=== PATIENT | female | born 1975 | race Hispanic/Latino ===

== ENCOUNTER 2025-05-02 18:07 | Emergency (ER) | payer SELFPAY ==
[~2025-05-02] VITALS: Ht 157.5 cm; Wt 127.0 kg
--- NOTE | 2025-05-02 18:14 | ERN ---
ED Note History of Present Illness Stated Complaint: FEVER, COUGH, BODY ACHES Chief Complaint: Fever Time Seen by MD: 18:09 Dictation: PATIENT IS A 49-YEAR-OLD FEMALE HERE WITH FLU-LIKE SYMPTOMS TO INCLUDE FEVER WITH CHILLS, DRY COUGH, MILD SORE THROAT WITH MALAISE FOR THE LAST TWO DAYS. SHE DENIES NAUSEA VOMITING OR DIARRHEA. NO LOSS OF TASTE OR SMELL IS TAKING CHILDREN'S TYLENOL OR MOTRIN FOR FEVER. NO PRIMARY CARE DOCTOR Allergies: Coded Allergies: No Known Allergies (Unverified Allergy, Unknown, 05/02/25) Past Medical History History: Not Applicable RN Note Reviewed/Agreed w/PFSH: Yes Review of System Dictation CONSTITUTIONAL: NEGATIVE EXCEPT FOR HPI FEVER CHILLS HEAD/FACE: NEGATIVE EXCEPT FOR HPI EENT: NEGATIVE EXCEPT FOR HPI SORE THROAT RESPIRATORY: NEGATIVE EXCEPT FOR HPI DRY COUGH GASTROINTESTINAL/ABDOMINAL: NEGATIVE EXCEPT FOR HPI GENITOURINARY: NEGATIVE EXCEPT FOR HPI MUSCULOSKELETAL: NEGATIVE EXCEPT FOR HPI INTEGUMENTARY: NEGATIVE EXCEPT FOR HPI NEUROLOGICAL/PSYCH: NEGATIVE EXCEPT FOR HPI HEMATOLOGIC/LYMPHATIC: NEGATIVE EXCEPT FOR HPI ALL SYSTEMS NEGATIVE, EXCEPT NOTED ABOVE. 13 POINT REVIEW OF SYSTEMS ASSESSED AND ALL NEGATIVE EXCEPT FOR ABOVE. Initial Vital Sign VS Vital Signs Date Time Temp Pulse Resp B/P (MAP) Pulse Ox O2 Delivery O2 Flow Rate FiO2 05/02/25 18:08 99.7 102 18 133/65 99 Room Air 0 05/02/25 18:20 21 Physical Exam Dictation VITAL SIGNS REVIEWED GENERAL APPEARANCE: ALERT, ORIENTED X 3, MILD ACUTE DISTRESS, WELL DEVELOPED, NOURISHED. OBESE HEAD AND FACE: NON-TRAUMATIC. EYES: PERRL, PINK CONJUNCTIVAS, EYELID NO TRAUMA, ANTERIOR CHAMBER WITH ARCUS SENILIS. EARS: PINNAS INTACT AND NO SIGNS OF TRAUMA OR ERYTHEMA EAR CANALS CLEAR AND NO DISCHARGE TM NO ERYTHEMA NOSE: NO DISCHARGE, NO BLEEDING. OROPHARYNX: MOUTH NORMAL, TONGUE PINK, PHARYNX CLEAR, MILD PHARYNGEAL ERYTHEMA, TONSILS NO EXUDATES, NO ABSCESSES NOTED, MUCOUS MEMBRANE MOIST UVULA MIDLINE, VOICE IS CLEAR NECK: SUPPLE, NON-TENDER, NO THYROMEGALY, NO MASSES, NO JVD, NO BRUITS BREAST:DEFERRED CHEST:NO TENDERNESS, NO CREPITUS, NO PARADOXICAL MOVEMENT, NO RETRACTIONS LUNGS:CLEAR, WELL-VENTILATED, SYMMETRIC, NO RALES, NO WHEEZING, NO RHONCHI, NO STRIDOR, GOOD BREATH SOUNDS BILATERALLY HEART: REGULAR RATE, REGULAR RHYTHM, NO MURMUR, NO GALLOPS VASCULAR: NO PERIPHERAL EDEMA, ABDOMEN: SOFT, POSITIVE BOWEL SOUNDS, NONDISTENDED, NO GUARDING, NONTENDER, NO REBOUND, NO MASSES NO HEPATOMEGALY, NO SPLENOMEGALY, NO VALDEZ'S SIGN, NO HERNIAS. RECTAL: DEFERRED GENITAL: DEFERRED NEUROLOGICAL: NORMAL SPEECH, MOTOR FUNCTION INTACT, SENSORY FUNCTION INTACT MUSCULOSKELETAL: NECK NONTENDER, FULL RANGE OF MOTION, BACK NONTENDER, FULL RANGE OF MOTION, EXTREMITIES: NONTENDER, FULL RANGE OF MOTION SKIN: COLOR PINK, DRY, NO TURGOR, NO RASH, NO LACERATIONS, NO ABRASIONS, NO CONTUSIONS. LYMPHATIC: DEFERRED Results (Laboratory/Radiology) Laboratory/Radiology Laboratory Tests Test 05/02/25 18:11 Influenza Type A Antigen Negative For Type A Influenza Type B Antigen Negative For Type B SARS-CoV-2 Antigen (Rapid) PRESUMPTIVE NEGATIVE Group A Streptococcus Rapid negative (NEGATIVE) Labs Reviewed?: Yes ED Course ED Course Orders Procedure Category Date Status Time Rapid (Group A Strep) LAB 05/02/25 Complete 18:11 Covid19 (Sars Antigen LAB 05/02/25 Complete Rapid) 18:11 Influenza Type A & B, LAB 05/02/25 Complete Rapid 18:11 Acetaminophen 500mg PHA 05/02/25 Complete Tab (Tylenol 500mg T 18:30 Current Medications Medications (Trade) Dose Ordered Sig/Beatrice Route PRN Reason Start Time Stop Time Status Last Admin Dose Admin Acetaminophen (TYLenol 500MG TAB) 1,000 mg ONCE ONCE PO 05/02/25 18:30 05/02/25 18:31 DC 05/02/25 18:45 Vital Signs Date Time Temp Pulse Resp B/P (MAP) Pulse Ox O2 Delivery O2 Flow Rate FiO2 05/02/25 18:20 98.8 93 18 128/62 99 Room Air* 0 21 05/02/25 18:08 99.7 102 18 133/65 99 Room Air 0 Medical Decision Making [facility] 1900/MEDICAL DECISION-MAKING BASED ON SWABS FOR FLU COVID AND STREP. ALL SWABS NEGATIVE PATIENT WILL BE TREATED EMPIRICALLY FOR ACUTE PHARYNGITIS UNSPECIFIED GIVEN AUGMENTIN 875 B.I.D. 10 DAYS TOLD TO SEE HER PRIMARY CARE DOCTOR DX & DISP Disposition: Discharge Departure Impression: Primary Impression: Acute pharyngitis, unspecified Additional Impression: Fever Condition: Stable Scripts Ibuprofen (Ibuprofen 800 mg Tab) 800 Mg Tab 800 MG PO Q8H PRN for fever or pain, #30 TAB 0 Refills Prov: VITOCATRACHITASIDRA 05/02/25 Amoxicillin/Potassium Clav (Amox Tr-K Clv 875-125 mg Tab) 875 Mg-125 Mg Tablet 1 EACH PO BID for 10 Days, #20 TAB 0 Refills Prov: SIDRA GONZALEZ 05/02/25 Additional Instructions: FOLLOW-UP WITH PRIMARY CARE PROVIDER IN 1 TO 2 DAYS. TAKE MEDICATIONS DIRECTED HERE IN THE EMERGENCY ROOM. OKAY TO CONTINUE HOME MEDICATIONS UNLESS OTHERWISE DISCUSSED DURING YOUR VISIT IN THE EMERGENCY ROOM TODAY. RETURN TO YOUR NEAREST EMERGENCY ROOM IF SYMPTOMS WORSEN OR IF THERE IS NO IMPROVEMENT. CALL 911 IF YOU NEED IMMEDIATE ASSISTANCE. TAKE TYLENOL OR MOTRIN [id number] NEEDED AND IF NO CONTRAINDICATIONS ARE PRESENT. INCREASE ORAL HYDRATION. A WOUND CULTURE OR URINE CULTURE WAS ORDERED HERE IN THE EMERGENCY ROOM DEPARTMENT PLEASE FOLLOW-UP WITH PRIMARY CARE PROVIDER AND ADVISE THEM TO GET REPEAT PORTS FROM OUR FACILITY. IF YOU HAD ANY KRISTIN WRAP/SPLINTS TH AT WERE APPLIED HERE, PLEASE DO NOT REMOVE THEM UNTIL YOU SEE YOUR PRIMARY CARE OR SPECIALTY. TAKE AUGMENTIN DIRECTED UNTIL GONE. TAKE IBUPROFEN NEEDED FOR FEVER PAIN. INCREASE YOUR WATER INTAKE. SEE YOUR PRIMARY CARE DOCTOR FOR FOLLOW UP IN 1-2 DAYS. Referrals: SELF,REFERRAL (PCP) Time of Disposition: 18:58 I have reviewed the case, and I agree with, Diagnosis and Plan SIDRA GONZALEZ May 02, 2025 18:14
[2025-05-02 18:20] VITALS: BP 128/62; PULSE 93; RESP 18; TEMP 98.7; O2SAT 99
[2025-05-02 18:30] LABS: RAPID GROUP A STREP negative (NEGATIVE)
[2025-05-02 18:41] LABS: COVID19 (SARS ANTIGEN RAPID) PRESUMPTIVE NEGATIVE (NEGATIVE); INFLUENZA TYPE A Negative For Type A (NEGATIVE); INFLUENZA TYPE B Negative For Type B (NEGATIVE)
[2025-05-02] MEDS ORDERED: IBUP-2077 PO (19:09)
[2025-05-02] MEDS ORDERED: AMOX1TAB16 PO (19:09)
== END 2025-05-02 19:21 | disposition home or self-care (01) ==
LOC: EDH 18:07
DX: J02.9 Acute pharyngitis, unspecified (principal); R50.9 Fever, unspecified; Z20.822 Contact with and (suspected) exposure to COVID-19
CPT/HCPCS: 87426; 87804; 87880; 99283